=== PATIENT | male | born 1965 | race Caucasian/White ===

== ENCOUNTER 2017-12-16 14:24 | Emergency (ER) | payer OTHER ==
[~2017-12-16] VITALS: Ht 172.7 cm; Wt 88.0 kg
[2017-12-16 14:43] VITALS: Ht 172.7 cm; Wt 88.0 kg
[2017-12-16 15:55] VITALS: BP 145/98
== END 2017-12-16 15:55 | disposition home or self-care (01) ==
LOC: ED 14:24
DX: H61.21 Impacted cerumen, right ear (principal); I10 Essential (primary) hypertension; E11.9 Type 2 diabetes mellitus without complications; E78.00 Pure hypercholesterolemia, unspecified

== ENCOUNTER 2019-07-15 20:08 | Inpatient (IN) | payer MEDICAID ==
[~2019-07-15] VITALS: Ht 172.7 cm; Wt 95.3 kg
[2019-07-15 20:14] VITALS: Ht 172.7 cm; Wt 95.3 kg
[2019-07-15 21:35] LABS: UA SPECIFIC GRAVITY >=1.030 (1.005-1.035); microscopic required? YES; urine erythrocyte 2+ (NEGATIVE)
[2019-07-15 21:44] LABS: BASOPHIL % 0.1 % (0-2); PLATELET COUNT 208 x10^3mcL (130-400); RED CELL DISTRIBUTION WIDTH 13.9 % (11.5-14.5)
[2019-07-15 21:52] LABS: AMPHETAMINE QUAL UR NONE DETECTED (See below)
[2019-07-15 22:01] LABS: CALCIUM 10.2 mg/dL (8.5-10.1); CARBON DIOXIDE 25.5 mmol/L (21-32); CHLORIDE SERUM 98 mmol/L (98-107); CREATININE SERUM 1.1 mg/dL (0.7-1.3); GFR1 > 60 mL/min; GLUCOSE SERUM 127 mg/dL (74-106); POTASSIUM SERUM 3.3 mmol/L (3.5-5.1); SODIUM SERUM 137 mmol/L (136-145)
[2019-07-15 22:05] LABS: ALBUMIN 4.3 g/dL (3.4-5.0); ALKALINE PHOSPHATASE 64 U/L (46-116); ALT/SGPT 20 U/L (16-63); AST/SGOT 15 U/L (15-37); TOTAL PROTEIN, SERUM 7.7 g/dL (6.4-8.2)
[2019-07-15] MEDS ORDERED: ULTRAM50 MG PO (23:50)
[2019-07-15] MEDS ORDERED: KEPPRA250 M1 PO (23:50)
[2019-07-16 00:38] LABS: CHOLESTEROL/HDL RATIO 4.1; MAGNESIUM 1.8 mg/dL (1.8-2.4); PHOSPHOROUS 3.6 mg/dL (2.5-4.9)
[2019-07-16 01:09] VITALS: BP 169/104
[2019-07-16 05:25] VITALS: BP 148/93
[2019-07-16 08:06] VITALS: BP 150/96
[2019-07-16 09:01] LABS: BASOPHIL % 0.1 % (0-2); PLATELET COUNT 184 x10^3mcL (130-400); RED CELL DISTRIBUTION WIDTH 13.7 % (11.5-14.5)
[2019-07-16 09:04] LABS: CALCIUM 9.4 mg/dL (8.5-10.1); CARBON DIOXIDE 33.5 mmol/L (21-32); CHLORIDE SERUM 104 mmol/L (98-107); CREATININE SERUM 0.8 mg/dL (0.7-1.3); GFR1 > 60 mL/min; GLUCOSE SERUM 119 mg/dL (74-106); MAGNESIUM 1.8 mg/dL (1.8-2.4); PHOSPHOROUS 3.2 mg/dL (2.5-4.9); POTASSIUM SERUM 3.3 mmol/L (3.5-5.1); SODIUM SERUM 144 mmol/L (136-145)
[2019-07-16 13:16] VITALS: BP 148/93
[2019-07-16 17:17] VITALS: BP 149/82
[2019-07-16 20:05] VITALS: BP 154/87
[2019-07-17 05:38] VITALS: BP 153/92
[2019-07-17 06:24] LABS: BASOPHIL % 0.3 % (0-2); PLATELET COUNT 173 x10^3mcL (130-400); RED CELL DISTRIBUTION WIDTH 13.7 % (11.5-14.5)
[2019-07-17 06:30] LABS: CALCIUM 9.3 mg/dL (8.5-10.1); CARBON DIOXIDE 31.2 mmol/L (21-32); CHLORIDE SERUM 106 mmol/L (98-107); CREATININE SERUM 0.7 mg/dL (0.7-1.3); GFR1 > 60 mL/min; GLUCOSE SERUM 101 mg/dL (74-106); MAGNESIUM 1.9 mg/dL (1.8-2.4); PHOSPHOROUS 3.4 mg/dL (2.5-4.9); POTASSIUM SERUM 3.6 mmol/L (3.5-5.1); SODIUM SERUM 144 mmol/L (136-145)
[2019-07-17 07:54] VITALS: BP 139/95
[2019-07-17] MEDS ORDERED: KEPPRA500 MG PO (08:46)
[2019-07-17] MEDS ORDERED: LOP50 PO (08:50)
[2019-07-17 10:26] VITALS: BP 139/95
[2019-07-17 11:58] VITALS: BP 148/72
[2019-07-17 16:06] VITALS: BP 122/80
[2019-07-17 20:06] VITALS: BP 145/90
[2019-07-18 06:13] VITALS: BP 155/71
[2019-07-18 08:12] VITALS: BP 165/81
[2019-07-18] MEDS ORDERED: BG FS (10:48)
[2019-07-18] MEDS ORDERED: FORTAMET1000 MG PO (10:48)
[2019-07-18] MEDS ORDERED: ZES10 PO (10:49)
[2019-07-18 12:12] VITALS: BP 147/95
[2019-07-18 20:31] VITALS: BP 127/65
[2019-07-19 05:45] VITALS: BP 147/82
[2019-07-19 06:37] LABS: BASOPHIL % 0.3 % (0-2); PLATELET COUNT 186 x10^3mcL (130-400)
[2019-07-19 07:00] LABS: CALCIUM 9.6 mg/dL (8.5-10.1); CARBON DIOXIDE 29.2 mmol/L (21-32); CHLORIDE SERUM 106 mmol/L (98-107); CREATININE SERUM 0.7 mg/dL (0.7-1.3); GFR1 > 60 mL/min; GLUCOSE SERUM 77 mg/dL (74-106); MAGNESIUM 1.8 mg/dL (1.8-2.4); PHOSPHOROUS 4.1 mg/dL (2.5-4.9); POTASSIUM SERUM 3.5 mmol/L (3.5-5.1); SODIUM SERUM 144 mmol/L (136-145)
[2019-07-19 08:55] VITALS: BP 132/74
[2019-07-19 12:30] VITALS: BP 128/72
[2019-07-19 18:44] VITALS: BP 140/64
[2019-07-19 20:10] VITALS: BP 116/75
[2019-07-20 05:25] VITALS: BP 177/86
[2019-07-20 06:44] LABS: BASOPHIL % 0.4 % (0-2); PLATELET COUNT 174 x10^3mcL (130-400); RED CELL DISTRIBUTION WIDTH 13.8 % (11.5-14.5)
[2019-07-20 07:04] LABS: CALCIUM 9.7 mg/dL (8.5-10.1); CARBON DIOXIDE 28.2 mmol/L (21-32); CHLORIDE SERUM 104 mmol/L (98-107); CREATININE SERUM 0.6 mg/dL (0.7-1.3); GFR1 > 60 mL/min; GLUCOSE SERUM 80 mg/dL (74-106); POTASSIUM SERUM 3.7 mmol/L (3.5-5.1); SODIUM SERUM 140 mmol/L (136-145)
[2019-07-20 09:20] VITALS: BP 137/83
[2019-07-20 17:02] VITALS: BP 133/87
[2019-07-20 20:20] VITALS: BP 129/84
[2019-07-21 05:12] VITALS: BP 150/86
[2019-07-21 06:34] LABS: BASOPHIL % 0.2 % (0-2); PLATELET COUNT 183 x10^3mcL (130-400); RED CELL DISTRIBUTION WIDTH 13.4 % (11.5-14.5)
[2019-07-21 06:57] LABS: CALCIUM 9.4 mg/dL (8.5-10.1); CARBON DIOXIDE 27.6 mmol/L (21-32); CHLORIDE SERUM 104 mmol/L (98-107); CREATININE SERUM 0.6 mg/dL (0.7-1.3); GFR1 > 60 mL/min; GLUCOSE SERUM 85 mg/dL (74-106); POTASSIUM SERUM 3.6 mmol/L (3.5-5.1); SODIUM SERUM 139 mmol/L (136-145)
[2019-07-21 08:38] VITALS: BP 147/97
[2019-07-21 10:40] VITALS: BP 147/97
== END 2019-07-21 16:07 | DRG 53 ==
LOC: ED 20:08 → DU 23:03 → MU 23:03 → DU 07-16 00:21 → MU 07-17 12:55
PROVIDERS: Specialist; ADMIT Family Medicine
DX: G40.909 Epilepsy, unspecified, not intractable, without status epilepticus (principal); N17.0 Acute kidney failure with tubular necrosis; E11.9 Type 2 diabetes mellitus without complications; E87.6 Hypokalemia; I10 Essential (primary) hypertension; E78.00 Pure hypercholesterolemia, unspecified; S01.512A Laceration without foreign body of oral cavity, initial encounter; M19.90 Unspecified osteoarthritis, unspecified site; X58.XXXA Exposure to other specified factors, initial encounter; Z91.14 Patient's other noncompliance with medication regimen; Z86.73 Personal history of transient ischemic attack (TIA), and cerebral infarction without residual deficits; Z88.0 Allergy status to penicillin; Y93.89 Activity, other specified; Y92.89 Other specified places as the place of occurrence of the external cause; Y99.8 Other external cause status
CPT/HCPCS: 82962; 97110-GP; 97116-GP; 97530-GP; G0378; G0480; J0360; J1953; J2060; J2270; J3490; J7030; J7040